=== PATIENT | female | born 1995 | race Caucasian/White ===

== ENCOUNTER 2023-01-17 19:00 | Emergency (ER) | payer OTHER, MEDICAID ==
[~2023-01-17] VITALS: Ht 177.8 cm; Wt 88.6 kg
[2023-01-17 19:21] VITALS: BP 153/92
[2023-01-17 20:57] LABS: URINE HCG NEGATIVE (NEG)
[2023-01-17 21:15] LABS: CLARITY,URINE TURBID (Clear); COLOR,URINE RED (Yellow); UA COLLECTION TYPE CLN CATCH MIDSTREAM
[2023-01-17 21:19] LABS: BACTERIA,URINE 3+ /HPF (Neg); MUCUS STRANDS NONE SEEN /LPF (Neg); RBC,URINE TNTC /HPF (0-2); SQUAMOUS EPITHELIAL CELL,UR FEW /LPF (FEW); WBC,URINE TNTC /HPF (0-4)
[2023-01-17 23:02] LABS: EOSINOPHILS # (AUTO) 0.1 X10'3 (0-0.9)
[2023-01-17 23:04] LABS: BASOPHILS # (AUTO) 0.1 X10'3 (0-0.2); BASOPHILS % (AUTO) 0.3 % (0-1); EOSINOPHILS % (AUTO) 0.5 % (0-6); HEMATOCRIT 40.3 % (35.0-45.0); HEMOGLOBIN 13.3 g/dl (12.0-16.0); LYMPHOCYTES # (AUTO) 2.4 X10'3 (1.1-4.8); LYMPHOCYTES % (AUTO) 15.4 % (21-51); MEAN CORPUSCULAR HEMOGLOBIN 29.4 PG (27.0-31.0); MEAN CORPUSCULAR VOLUME 89.1 FL (78-98); MEAN PLATELET VOLUME 7.5 FL (7.4-10.4); MONOCYTES % (AUTO) 6.3 % (2-12); NEUTROPHILS % (AUTO) 77.5 % (42-75); PLATELET COUNT 313 X10'3 (140-440); RED BLOOD COUNT 4.53 X10'6 (4.20-5.60); RED CELL DISTRIBUTION WIDTH 13.5 % (11.5-14.5); WHITE BLOOD COUNT 15.4 X10'3 (4.5-11.0)
[2023-01-17 23:14] LABS: ALANINE AMINOTRANSFERASE 20 U/L (12-78); ALKALINE PHOSPHATASE 81 IU/L (46-116); ANION GAP 11 (8-16); ASPARTATE AMINO TRANSFERASE 14 U/L (10-37); BILIRUBIN,TOTAL 0.3 MG/DL (0.1-1.0); BLOOD UREA NITROGEN 14 MG/DL (7-18); BUN/CREATININE RATIO 15.2 (10.0-20.0); CALCIUM 9.1 MG/DL (8.5-10.1); CHLORIDE 103 MMOL/L (99-107); CREATININE 0.92 MG/DL (0.40-0.90); GLUCOSE 95 MG/DL (70-104); LIPASE 77 U/L (73-393); POTASSIUM 4.1 MMOL/L (3.5-5.1); SODIUM 137 MMOL/L (135-145); TOTAL CARBON DIOXIDE 22.8 MMOL/L (24-32); eCRCL 101 ML/MIN; eGFR 74 ML/MIN
[2023-01-18] MEDS ORDERED: famotidine/PF 10 mg/ml inj IV ONE (02:00)
[2023-01-18] MEDS ORDERED: morphine 4 MG/ML inj SYRINge IV ONE (02:00)
[2023-01-18] MEDS ORDERED: ketorolac trometh. 30mg/ml inj. IV ONE (02:00)
[2023-01-18] MEDS ORDERED: acetaminophen 325mg tablet PO ONE (02:00)
[2023-01-18] MEDS ORDERED: phenazopyridine 100mg tablet PO ONE (02:00)
[2023-01-18] MEDS ORDERED: normal saline 1000ML IV soln IVB ONE (02:00)
[2023-01-18] MEDS ORDERED: ondansetron/PF 4mg/2ml inj IV ONE (02:00)
[2023-01-18] MEDS ORDERED: iohexol 300mg/ml 100ml inj. ONE (02:20)
[2023-01-18] MEDS ORDERED: ondansetron 4mg rapidly disintigrating tab PO ONE (02:55)
[2023-01-18] MEDS ORDERED: famotidine 20mg tablet PO ONE (02:55)
[2023-01-18] MEDS ORDERED: CefTRIAXone 1000mg IM Kit (w/lidocaine diluent) IM ONE (03:15)
[2023-01-18] MEDS ORDERED: ONDA4TAB12 PO (03:25)
[2023-01-18] MEDS ORDERED: CEPH-585 PO (03:25)
[2023-01-18] MEDS ORDERED: NAPR-1170 PO (03:25)
[2023-01-18] MEDS ORDERED: PHEN-824 PO (03:25)
[2023-01-18] MEDS ORDERED: ACET-1025 PO (03:25)
[2023-01-18 03:42] VITALS: PULSE 95; RESP 18; O2SAT 98
== END 2023-01-18 03:43 | disposition home or self-care (01) ==
LOC: ER 19:00
DX: N30.80 Other cystitis without hematuria (principal); Z79.2 Long term (current) use of antibiotics; Z79.899 Other long term (current) drug therapy
CPT/HCPCS: 36415; 74176; 80053; 81001; 81025; 83690; 85025; 87077; 87088; 87186; 96372; 99285; J0696; J7030; J3490; Q9967